=== PATIENT | female | born 1950 | race Caucasian/White ===

== ENCOUNTER 2018-08-08 21:21 | Emergency (ER) | payer MEDICARE ==
[2018-08-08 21:49] LABS: Bilirubin Negative (Negative); Blood, Urine Moderate (Negative); Clarity Clear (Clear); Glucose, Urine (Dipstick) Negative (Negative); Leukocyte Large (Negative); Nitrite Negative (Negative); Protein, Urine (Dipstick) Trace mg/dL (Neg-Trace); Specific Gravity, Urine 1.025 (1.005-1.030); Urobilinogen 0.2 mg/dL (0.2-1.0)
[2018-08-08 22:03] LABS: Bacteria/HPF 2+ HPF (None Seen); Squamous Epithelial 0-3 HPF (0-3); Transitional Epithelial 0-3 HPF (0-3); WBC/HPF 21-50 HPF (0-3)
[2018-08-08 22:04] LABS: Hyaline Casts/LPF 0-3 HYALINE CAST LPF (0-3 Hyaline)
== END 2018-08-08 22:01 | disposition home or self-care (01) ==
LOC: SCSER 21:21
DX: N39.0 Urinary tract infection, site not specified (principal); I10 Essential (primary) hypertension; Z79.899 Other long term (current) drug therapy
CPT/HCPCS: 81003; 81015; 87077; 87086; 87186; 99283

== ENCOUNTER 2019-04-27 14:56 | Emergency (ER) | payer MEDICARE ==
[2019-04-27] MEDS ORDERED: Sodium Chloride For Inhalation 0.9% 3 ML NEB ONE (15:57)
[2019-04-27] MEDS ORDERED: Dexamethasone 4 MG TAB ONE (16:00)
[2019-04-27] MEDS ORDERED: Dexamethasone 1 MG TAB ONE (16:00)
== END 2019-04-27 16:31 | disposition home or self-care (01) ==
LOC: SCSER 14:56
DX: J20.9 Acute bronchitis, unspecified (principal); R51 Headache; I10 Essential (primary) hypertension
CPT/HCPCS: 94640; J7620; J8540